=== PATIENT | female | born 1945 | race Caucasian/White ===

== ENCOUNTER → 2017-01-07 | Outpatient (CLI) | payer MEDICARE, OTHER | LOC: EDSTATUS 01-16 07:53 → FS 14:24 | PROVIDERS: ATTEND Internal Medicine Hematology & Oncology | DX: C50.412 Malignant neoplasm of upper-outer quadrant of left female breast (principal); I89.0 Lymphedema, not elsewhere classified; M89.8X9 Other specified disorders of bone, unspecified site; E78.00 Pure hypercholesterolemia, unspecified; Z17.0 Estrogen receptor positive status [ER+]; Z92.3 Personal history of irradiation | CPT/HCPCS: 99213 ==

== ENCOUNTER → 2017-03-20 | Outpatient (CLI) | payer MEDICARE, OTHER ==
[2017-03-20 11:01] LABS: ALBUMIN 4.3 GM/DL (3.2-4.5); BILIRUBIN,DIRECT 0.3 MG/DL (0.0-0.3); BILIRUBIN,INDIRECT 0.3 MG/DL; BILIRUBIN,TOTAL 0.6 MG/DL (0.1-1.0); TOTAL PROTEIN 7.6 GM/DL (6.4-8.2)
== END ==
LOC: CARD 09:46
PROVIDERS: ATTEND Internal Medicine Cardiovascular Disease
DX: E78.5 Hyperlipidemia, unspecified (principal); R61 Generalized hyperhidrosis; Z82.3 Family history of stroke; Z82.49 Family history of ischemic heart disease and other diseases of the circulatory system; M79.602 Pain in left arm; R07.89 Other chest pain
CPT/HCPCS: 36415; 80061; 80076; 93306

== ENCOUNTER 2018-10-13 10:02 | Outpatient (CLI) | payer MEDICARE, OTHER ==
[~2018-10-13] VITALS: Ht 162.6 cm; Wt 72.4 kg
[2018-10-13] MEDS ORDERED: RANI150T46 PO (11:18)
[2018-10-13] MEDS ORDERED: SIMV20TA3 PO (11:18)
[2018-10-13] MEDS ORDERED: CALC-823 PO (11:19)
[2018-10-13] MEDS ORDERED: MULT-884 PO (11:19)
[2018-10-14] MEDS ORDERED: PANT40TA2 PO (11:30)
[2018-10-14] MEDS ORDERED: ASPI-983 PO (11:32)
== END 2018-10-13 11:20 | disposition home or self-care (01) ==
LOC: PREOP 10:02
PROVIDERS: ATTEND Surgery
DX: Z01.818 Encounter for other preprocedural examination (principal)

== ENCOUNTER 2018-10-14 10:48 | Day surgery (SDC) | payer MEDICARE, OTHER ==
[~2018-10-14] VITALS: Ht 162.6 cm; Wt 72.4 kg
[~2018-10-14 10:48] MED LIST: CALC-823 PO; MULT-884 PO; RANI150T46 PO; SIMV20TA3 PO
[2018-10-14] MEDS ORDERED: NS IV 500 ML 500 ML IV PRN (11:02)
[2018-10-14] MEDS ORDERED: NS IV 500 ML 500 ML ONE (11:09)
[2018-10-14] MEDS ORDERED: fentaNYL INJECTION 100 MCG/2 ML AMP IVP ONE (11:15)
[2018-10-14] MEDS ORDERED: HURRICAINE EXT TUBE (BENZOCAINE) XX PRN (11:15)
[2018-10-14] MEDS ORDERED: MIDAZOLAM 2 MG/2 ML (VERSED) VIAL IVP ONE (11:15)
--- NOTE | 2018-10-14 11:28 | Progress Note-Pre Operative ---
Pre-Operative Progress Note H&P Reviewed The H&P was reviewed, patient examined and no changes noted. Date Seen by Provider: Oct 14, 2018 Time Seen by Provider: 11:15 Date H&P Reviewed: Oct 14, 2018 Time H&P Reviewed: 11:15 Pre-Operative Diagnosis: dysphagia, family hx colon ca MARGARITA HUNTER MD Oct 14, 2018 11:28
--- NOTE | 2018-10-14 11:28 | Conscious Sedation/ASA ---
Conscious Sedation Pre-Proced Time 11:15 ASA Score 2 For ASA 3 and 4: Consider anesthesia and medical clearance. Also, for patients with a history of failed moderate sedation consider anesthesia. Airway Lungs Heart ASA score ASA 1: a normal healthy patient ASA 2: a patient with a mild systemic disease (mid diabetes, controlled hypertension, obesity ASA 3: a patient with a severe systemic disease that limits activity (angina , COPD, prior Myocardial infarction) ASA 4: a patient with an incapacitating disease that is a constant threat to life (CHF, renal failure) ASA 5: a moribund patient not expected to survive 24 hrs. (ruptured aneurysm) ASA 6: a declared brain- patient whose organs are being harvested. For emergent operations, add the letter E after the classification Mallampati Classification Grade 2 Sedation Plan Analgesia, Amnesia, Plan communicated to team members, Discussed options with patient/fam, Discussed risks with patient/fam The patient is an appropriate candidate to undergo the planned procedure, sedation, and anesthesia. The patient immediately re-assessed prior to indication. MARGARITA HUNTER MD Oct 14, 2018 11:28
[2018-10-14] MEDS ORDERED: ACETAMINOPHEN 325 MG TABLET PO PRN (11:30)
[2018-10-14] MEDS ORDERED: PANT40TA2 PO (11:30)
[2018-10-14] MEDS ORDERED: HYDROcodone/APAP 5 MG/325 MG (LORTAB) TAB PO PRN (11:30)
[2018-10-14] MEDS ORDERED: ONDANSETRON 4 MG/2 ML (SDV) Z0FRAN IV PRN (11:30)
[2018-10-14] MEDS ORDERED: morphine INJ 10 MG/ML 1ML (SYR OR VIAL) IV PRN (11:30)
--- NOTE | 2018-10-14 11:30 | Discharge Inst-Surgical ---
D/C Lap Instructions-KIDDaniel New, Converted, or Re-Newed RX: RX on Chart Follow Up Appt 6 weeks Activity as tolerated High Fiber Diet 25g or more per day Avoid Alcohol, Caffeine, Spicy Seibert and Acid foods. Drink 64 fluid oz or more of fluids per day. Symptoms to Report: Fever over 101 degree F, Nausea/Vomiting If any problems/questions: Contact your physician or go to Emergency Room MARGARITA HUNTER MD Oct 14, 2018 11:30
[2018-10-14] MEDS ORDERED: ASPI-983 PO (11:32)
[2018-10-14 11:43] VITALS: BP 147/87
[2018-10-14] MEDS ORDERED: fentaNYL INJECTION 100 MCG/2 ML AMP ONE (13:33)
[2018-10-14] MEDS ORDERED: LIDOCAINE JELLY 2% 6 ML SYRINGE ONE (13:33)
[2018-10-14] MEDS ORDERED: HURRICAINE EXT TUBE (BENZOCAINE) ONE (13:34)
[2018-10-14] MEDS ORDERED: MIDAZOLAM 2 MG/2 ML (VERSED) VIAL ONE ×8 (13:34→14:01)
--- NOTE | 2018-10-14 14:48 | Progress Note-Post Operative ---
Post-Operative Progess Note Surgeon (s)/Switchman (s) Surgeon MARGARITA HUNTER MD Switchman: none Pre-Operative Diagnosis dysphagia, family hx colon ca Post-Operative Diagnosis reflux esophagitis(stage 2), distal esophageal stricture, small-moderate HH(2cm), mild-mod gastritis. mild sigmoid diverticulosis. Procedure & Operative Findings Date of Procedure 10/14/18 Procedure Performed/Findings EGD with bx and balloon dilatation. Colonoscopy. Anesthesia Type cs Estimated Blood Loss Estimated blood loss (mL): minimal Specimens/Packing Specimens Removed ge jxn, antrum MARGARITA HUNTER MD Oct 14, 2018 14:48
[2018-10-14 14:50] VITALS: BP 130/66
[2018-10-14] MEDS ORDERED: LIDOCAINE JELLY 2% 6 ML SYRINGE TOP ONE (15:15)
[2018-10-14 15:20] VITALS: BP 131/67
[2018-10-14 15:50] VITALS: BP 131/67
[2018-10-14 16:35] VITALS: BP 131/67
--- NOTE | 2018-10-15 00:18 | OPERATIVE REPORT ---
DATE OF SERVICE: 10/14/2018 ATTENDING PRIMARY CARE PHYSICIAN: Dr. Duron. PREOPERATIVE DIAGNOSES: Dysphagia, family history of colon cancer. POSTOPERATIVE DIAGNOSES: Reflux esophagitis stage II with a distal esophageal stricture, small hiatal hernia approximately 2 cm in size. Mild to moderate gastritis. Mild sigmoid diverticulosis. PROCEDURE: EGD with biopsy and balloon dilatation. Colonoscopy. SURGEON: Margarita Abdullahi MD ANESTHESIA: Conscious sedation. ESTIMATED BLOOD LOSS: Minimal. FINDINGS: Reflux esophagitis stage II distal esophageal stricture and Schatzki's ring, small to moderate size hiatal hernia approximately 2 cm in size, mild to moderate gastritis. Pylorus and duodenum appeared normal with no distal obstructions. Colonoscopy: No significant hemorrhoids identified. Mild or early sigmoid diverticulosis. The remainder of the colon was normal. There were no polyps or any neoplasms identified. DISPOSITION: The patient tolerated the procedure well. INDICATIONS: The patient is a 73-year-old female in need of a screening colonoscopy. Her last one was approximately 12 years ago and she reports that she does have a first-degree family history with her father being diagnosed with the disease at age 93. She also does have a personal history of cancer with being diagnosed with left breast cancer in 1999 requiring lumpectomy, axillary node dissection as well as radiation. She reports that she has developed dysphagia on an intermittent basis and does have some issues with reflux and regurgitation. DESCRIPTION OF PROCEDURE: The patient was brought to the endoscopy suite, laid in the left lateral decubitus position with the head slightly elevated. After adequate IV pain and sedative medications and conscious sedation anesthesia, the mouthpiece was applied. The endoscope was then placed in the mouth visualizing the pharynx and hypopharyngeal region. Vocal cords, epiglottis and vallecula identified and appeared to be normal. The endoscope was gently intubated in the esophageal opening and esophagus insufflated. The endoscope was then advanced to the first, second and third portion of esophagus. At the level of the GE junction, a reflux esophagitis stage II identified as well as a distal esophageal stricture and Schatzki's ring identified. A biopsy was taken with forceps with visualization of good hemostasis. Mild to moderate gastritis was noted and a biopsy was taken of the antrum to rule out H. pylori with visualization of good hemostasis. The endoscope was then advanced to the pylorus and the first and second portions of the duodenum, which appeared normal with no distal obstructions. We then proceeded with dilatation of esophageal stricture. The balloon was placed in the stomach and pulled back to the area of stricture. We first proceeded to 2 atmospheres of pressure with mild resistance. We then proceeded to 4 atmospheres of pressure 19 mm in circumferential diameter with moderate resistance and left this in place for 60 seconds. The balloon was then desufflated and removed with visualization of good hemostasis as well as no mucosal tears. The endoscope was then slowly withdrawn while suctioning residual air with no additional findings. The patient tolerated the procedure well. We will start her on Protonix 40 mg daily and also have her follow the necessary lifestyle and diet accommodation including small and more frequent meals, avoidance of eating at night as well as head elevation while lying supine. She also needs to avoid caffeinated beverages, spicy, greasy and acidic foods. We will also start her on Protonix 40 mg daily. With the distal esophageal stricture, we will have her follow up in approximately 6 weeks and if she does continues to have some symptoms, we will proceed with a graded dilatation to a larger size. Under the same anesthesia, we then proceeded with the colonoscopy portion of procedure. A digital rectal examination was performed, which did not reveal any significant hemorrhoids. Normal sphincter tone was felt and there were no palpable masses. The endoscope was then intubated to the anus and rectum gently insufflated. The endoscope was then advanced to the valves of [place] of the rectum with no polyps or any neoplasms identified. We then proceeded through the sigmoid colon where mild sigmoid diverticulosis identified. There were no mucosal inflammatory changes to indicate any active diverticulitis. The endoscope was then advanced to the remainder of the descending, transverse and ascending colon to the cecum. These segments were normal. There were no polyps or any neoplasms identified throughout the colon or rectum. The endoscope was then slowly withdrawn while taking a second look and suctioning of residual air with no additional findings. The patient tolerated the procedure well. We will recommend a high fiber diet with at least 25 grams of fiber per day as well as significant amounts of water to promote soft stools on a daily basis. Due to her family history of colon cancer, we will recommend followup colonoscopies every 5 years. Job ID: [id number] DocumentID: [id number] Dictated Date: 10/14/2018 14:48:00 Aquatic Centre Manager Date: 10/15/2018 00:18:00 Dictated By: MARGARITA ABDULLAHI MD
== END 2018-10-14 16:35 | disposition home or self-care (01) ==
LOC: ENDO 10:48
PROVIDERS: ATTEND Surgery
DX: Z12.11 Encounter for screening for malignant neoplasm of colon (principal); K21.0 Gastro-esophageal reflux disease with esophagitis; K22.2 Esophageal obstruction; K44.9 Diaphragmatic hernia without obstruction or gangrene; K29.50 Unspecified chronic gastritis without bleeding; K57.30 Diverticulosis of large intestine without perforation or abscess without bleeding; E78.00 Pure hypercholesterolemia, unspecified; Z85.3 Personal history of malignant neoplasm of breast; Z80.0 Family history of malignant neoplasm of digestive organs; Z79.899 Other long term (current) drug therapy

== ENCOUNTER 2021-10-24 05:33 | Outpatient (CLI) | payer MEDICARE, OTHER ==
[~2021-10-24] VITALS: Ht 162.6 cm; Wt 70.8 kg
[~2021-10-24 05:33] MED LIST changes: +ASPI-1238 PO; +PANT40TA2 PO; +RANI-613 PO; -RANI150T46 PO; +SIMV20TA26 PO; -SIMV20TA3 PO
[2021-10-24] MEDS ORDERED: SPIR50TA4 PO (08:45)
[2021-10-24] MEDS ORDERED: ZINC50TA11 PO (08:45)
== END 2021-10-24 13:37 | disposition home or self-care (01) ==
LOC: PREOP 05:33
PROVIDERS: ATTEND Surgery
DX: Z01.818 Encounter for other preprocedural examination (principal)

== ENCOUNTER 2021-10-31 09:27 | Day surgery (SDC) | payer MEDICARE, OTHER ==
--- NOTE | 2021-10-24 07:19 | HISTORY AND PHYSICAL ---
DATE OF SERVICE: ATTENDING AND PRIMARY CARE PHYSICIAN: Dr. Oscar Duron. HISTORY OF PRESENT ILLNESS: The patient is a 76-year-old female who is known to us. She did undergo an EGD with biopsy and balloon dilatation as well as a colonoscopy by us on 10/14/2018. At that time, she was found to have a reflux esophagitis stage II, distal esophageal stricture and a Schatzki's ring as well as a small to moderate size hiatal hernia approximately 2 cm in size with mild to moderate gastritis. Colonoscopy revealed no significant hemorrhoids; however, there was a mild early sigmoid diverticulosis. She does report a first-degree family history of colon cancer with her father having the disease and being diagnosed around the age of 93. She also has a personal history of cancer of the left breast, which was diagnosed in 1999 requiring a lumpectomy as well as axillary node dissection and radiation. She was recently seen by her primary care physician for complaints of lower abdominal pain. She denies any nausea or vomiting as well as no diarrhea or constipation. She also denied any fever or chills. She did have a UA and reports that there was some blood in her urine. She also had some lab work performed and was found to have an elevated white count of 14,000. She did undergo a CT of the abdomen and pelvis was found to have significant transverse and proximal descending colon wall thickening. It was thought that this may have represented an infectious colitis or pseudomembranous colitis; however Crohn's disease or angioedema could not be ruled out. Upon further questioning, she denied any family history of any inflammatory bowel disease. She also denied any blood in her stool as well as no dark tarry stools. She denies any issues with any heartburn or reflux. She does report that her pain since then has significantly improved. MEDICAL HISTORY: Left breast cancer in 1999, gastroesophageal reflux disease, hypercholesterolemia. SURGICAL HISTORY: Left breast lumpectomy with axillary node dissection in 1999, laparoscopic appendectomy in 2001, complete hysterectomy in 1997. ALLERGIES: SULFA. MEDICATIONS: Aspirin 81 mg daily, Protonix 40 mg daily, spironolactone 25 mg daily, and simvastatin 20 mg daily. SOCIAL HISTORY: Negative for tobacco smoke. Negative for alcohol. FAMILY HISTORY: Father, colon cancer, hypertension. REVIEW OF SYSTEMS: Well-nourished female, in no acute distress. She is not experiencing any shortness of breath or difficulty breathing. No chest pain, palpitations or diaphoresis. No nausea or vomiting. She did report episodes of lower abdominal pain. She denied any diarrhea or constipation. No red blood per rectum. No dark tarry stools. No fever or chills. No recent inadvertent weight loss. All other review of systems negative. PHYSICAL EXAMINATION: VITAL SIGNS: Blood pressure is 110/60. Current weight is 156 pounds at 5 feet 4 inches. CHEST: Clear. Good breath sounds bilaterally. HEART: Regular, no murmurs. EXTREMITIES: No lower extremity edema. Negative Homans sign. HEENT: No scleral icterus. NECK: No cervical lymphadenopathy. ABDOMEN: Soft, nontender, nondistended. SKIN: Warm, dry and pink. NEUROLOGIC: Awake, alert and oriented x3. ASSESSMENT AND PLAN: A 76-year-old female with infectious colitis, who also has a family history of colon cancer with her father having the disease and also has a history of Beltre's esophagus. At this time, we will recommend proceeding with an EGD and a colonoscopy. The risks and benefits of the procedure as well as the procedure and home care instructions were explained to the patient. She verbalized understanding of instructions and agrees to proceed as planned. At this time, we will proceed with scheduling her for an EGD and a colonoscopy. Job ID: [id number] DocumentID: [id number] Dictated Date: 10/16/2021 08:54:01 Electric Dolly Operator Date: 10/16/2021 11:58:18 Dictated By: AIDEN AGARWAL APRN
[~2021-10-31] VITALS: Ht 162 cm; Wt 70.8 kg
[~2021-10-31 09:27] MED LIST changes: +SPIR50TA4 PO; +ZINC50TA11 PO
[2021-10-31] MEDS ORDERED: LACTATED RINGERS 1,000 ML IV STA (09:34)
[2021-10-31] MEDS ORDERED: LACTATED RINGERS 1,000 ML IV ONE (09:36)
--- NOTE | 2021-10-31 09:41 | Progress Note-Pre Operative ---
Pre-Operative Progress Note H&P Reviewed The H&P was reviewed, patient examined and no changes noted. Date Seen by Provider: Oct 31, 2021 Time Seen by Provider: :30 Date H&P Reviewed: Oct 31, 2021 Time H&P Reviewed: :30 Pre-Operative Diagnosis: GERD, hx barretts, hx colitis, FH MARGARITA HUNTER MD Oct 31, 2021 09:41
[2021-10-31 09:45] VITALS: BP 137/79
[2021-10-31] MEDS ORDERED: HURRICAINE EXT TUBE (BENZOCAINE) XX PRN (09:45)
[2021-10-31] MEDS ORDERED: ONDANSETRON 4 MG (ZOFRAN) ORAL DISSOLVE TAB PO PRN (09:45)
[2021-10-31] MEDS ORDERED: ONDANSETRON 4 MG/2 ML (SDV) Z0FRAN IVP PRN (09:45)
[2021-10-31] MEDS ORDERED: LIDOCAINE JELLY 2% 6 ML SYRINGE MM PRN (09:45)
[2021-10-31] MEDS ORDERED: PROPOFOL INJECTION 50 ML IV ONE (10:57)
[2021-10-31 12:10] VITALS: BP 111/59
[2021-10-31 12:15] VITALS: BP 111/58
[2021-10-31 12:20] VITALS: BP 110/62
--- NOTE | 2021-10-31 12:20 | Anesthesia-General Post-Op ---
MAC Patient Condition Mental Status/LOC: Same as Preop Cardiovascular: Satisfactory Nausea/Vomiting: Absent Respiratory: Satisfactory Pain: Controlled Complications: Absent Post Op Complications Complications None Follow Up Care/Instructions Patient Instructions None needed. Anesthesiology Discharge Order Discharge Order Patient is doing well, no complaints, stable vital signs, no apparent adverse anesthesia problems. No complications reported per nursing. CATRACHITA JORGENSEN CRNA Oct 31, 2021 12:20
--- NOTE | 2021-10-31 12:24 | Progress Note-Post Operative ---
Post-Operative Progess Note Surgeon (s)/Transplant Rn (s) Surgeon MARGARITA HUNTER MD Transplant Rn: none Pre-Operative Diagnosis GERD, hx barretts, hx colitis, FH Post-Operative Diagnosis reflux esophagitis(grade C), mild dist esoph stricture, small HH(2cm), moderate gastritis. mild chronic stage 2 ext and int hemorrhoids, moderate sigmoid diverticulosis, small inflammatory plaque desc colon. Procedure & Operative Findings Date of Procedure 10/31/21 Procedure Performed/Findings EGD with bx and balloon dilatation. colonoscopy with bx. Anesthesia Type mac Estimated Blood Loss Estimated blood loss (mL): minimal Specimens/Packing Specimens Removed ge jxn, antrum, descending colon. MARGARITA HUNTER MD Oct 31, 2021 12:24
[2021-10-31 13:10] VITALS: BP 108/62
--- NOTE | 2021-10-31 17:01 | OPERATIVE REPORT ---
DATE OF SERVICE: 10/31/2021 ATTENDING PRIMARY CARE PHYSICIAN: Oscar Duron DO. PREOPERATIVE DIAGNOSES: Gastroesophageal reflux disease, dysphagia, and history of colitis. POSTOPERATIVE DIAGNOSES: Mild distal esophageal stricture, reflux esophagitis [place] grade C, small hiatal hernia 2 cm in size, moderate gastritis, chronic stage II external and internal hemorrhoids, small inflammatory plaque along the descending colon, and moderate sigmoid diverticulosis. PROCEDURES PERFORMED: EGD with biopsy and balloon dilatation, colonoscopy with biopsy. SURGEON: Margarita Abdullahi MD. ANESTHESIA: Monitored anesthesia care. ESTIMATED BLOOD LOSS: Minimal. FINDINGS: Mild distal esophageal stricture, reflux esophagitis [place] grade C, small hiatal hernia 2 cm in size, moderate gastritis, chronic stage II external and internal hemorrhoids, small inflammatory plaque along the descending colon, and moderate sigmoid diverticulosis.. DISPOSITION: The patient tolerated the procedure well. INDICATIONS FOR PROCEDURE: The patient is a 76-year-old female known to us. She had issues with reflux and dysphagia and was found to have a stricture and underwent an EGD and balloon dilatation as well as a colonoscopy October of 2018. She had complaints of lower abdominal pain and had a CT scan performed, which did show inflammation of the transverse as well as the descending colon. She also reports that she has had recurrent issues with dysphagia. She also does have a first-degree family history of colon cancer. DESCRIPTION OF PROCEDURE: The patient was brought to the endoscopy suite and laid in the left lateral decubitus position. After adequate IV pain and sedative medications and monitored anesthesia care, the mouthpiece was applied. The endoscope was placed in the mouth, visualizing the pharynx and hypopharyngeal region. Vocal cords, epiglottis, and vallecula identified and appeared to be normal. The endoscope was then gently intubated into the esophageal opening and esophagus insufflated. The endoscope was then advanced through the first, second and third portion of the esophagus. At the level of the GE junction, reflux esophagitis [place] grade C identified as well as a mild distal esophageal stricture. A biopsy was taken with forceps with visualization of good hemostasis. The endoscope was advanced into the stomach and endoscope retroflexed, visualizing a small hiatal hernia approximately 2 cm in size. There was a moderate level gastritis. No formal ulcerations, polyps or any neoplasms. A biopsy was taken of the antrum to rule out H. pylori with visualization of good hemostasis. The endoscope was then advanced to the pylorus and first and second portion of the duodenum, which appeared normal with no distal obstructions or any ulcerations. The endoscope was then slowly withdrawn while taking a second look of suction of residual air. The balloon was then placed in the stomach and pulled back to the area of the stricture. We then proceeded in a grade to stepwise fashion from 2, 4, and then eventually 6 atmospheres of pressure or 20 mm in luminal diameter with moderate resistance and left this in place for 60 seconds. The balloon was then desufflated and removed with visualization of good hemostasis as well as no mucosal tears. The endoscope was slowly withdrawn while taking a second look and suctioning of residual air with no additional findings. A digital rectal examination was performed, which revealed chronic stage II external and internal hemorrhoids, not actively edematous nor inflamed and no bleeding. Normal sphincter tone was felt and there were no palpable masses. The endoscope was then intubated to the anus and rectum gently insufflated. The endoscope was then advanced through the valves of [place] of the rectum with no polyps or any neoplasms identified. Through the sigmoid colon, a moderate sigmoid diverticulosis identified. The endoscope was then advanced through the descending colon, where a small inflammatory plaque identified and this was biopsied with forceps with visualization of good hemostasis. This was the only isolated area of inflammation identified through the descending as well as transverse colon. The endoscope was then advanced through the remainder of the ascending colon to the cecum, which were normal. The endoscope was slowly withdrawn while taking a second look and suctioning of residual air with no additional findings. The patient tolerated the procedure well. We will recommend the necessary lifestyle and dietary accommodation including small and more frequent meals, avoiding to eating at night as well as head elevation while lying supine. She also needs to avoid caffeinated beverages, spicy, greasy and acidic foods. We will also await the biopsy results; however, the inflammation might have been consistent with more ischemic colitis due to the distribution and we will recommend optimizing medical status with proper hydration as well as diet and exercise to increase peripheral mesenteric arterial perfusion. Job ID: [id number] DocumentID: [id number] Dictated Date: 10/31/2021 12:15:08 Clinical Education Manager Date: 10/31/2021 17:00:29 Dictated By: MARGARITA ABDULLAHI MD
== END 2021-10-31 13:18 | disposition home or self-care (01) ==
LOC: ENDO 09:27
PROVIDERS: ATTEND Surgery
DX: K21.00 Gastro-esophageal reflux disease with esophagitis, without bleeding (principal); K29.70 Gastritis, unspecified, without bleeding; K22.2 Esophageal obstruction; K51.40 Inflammatory polyps of colon without complications; K44.9 Diaphragmatic hernia without obstruction or gangrene; K64.1 Second degree hemorrhoids; K64.4 Residual hemorrhoidal skin tags; K57.30 Diverticulosis of large intestine without perforation or abscess without bleeding; K31.89 Other diseases of stomach and duodenum; Z85.3 Personal history of malignant neoplasm of breast; Z80.0 Family history of malignant neoplasm of digestive organs
CPT/HCPCS: 88305